=== PATIENT | female | born 1990 | race Caucasian/White ===

== ENCOUNTER 2017-03-08 13:39 | Emergency (ER) | payer OTHER ==
[~2017-03-08] VITALS: Ht 167.6 cm; Wt 78.0 kg
[~2017-03-08 13:39] MED LIST: CYCL-1 PO
[2017-03-08 13:42] VITALS: BP 123/73
[2017-03-08 14:28] LABS: ALANINE AMINOTRANSFERASE 14 U/L (12-78); ALKALINE PHOSPHATASE 72 IU/L (46-116); ANION GAP 8 (8-16); ASPARTATE AMINO TRANSFERASE 15 U/L (10-37); BILIRUBIN,TOTAL 0.3 MG/DL (0.1-1.0); BLOOD UREA NITROGEN 13 MG/DL (7-18); BUN/CREATININE RATIO 18.6 (6.6-38.0); CALCIUM 9.5 MG/DL (8.5-10.1); CHLORIDE 104 MMOL/L (99-107); GLUCOSE 113 MG/DL (70-104); POTASSIUM 3.8 MMOL/L (3.5-5.1); SODIUM 139 MMOL/L (135-145); TOTAL CARBON DIOXIDE 27.4 MMOL/L (24-32); eGFR > 90 ML/MIN
[2017-03-08 14:40] LABS: BASOPHILS % (AUTO) 0.7 % (0-1); EOSINOPHILS # (AUTO) 0.3 X10'3 (0-0.9); EOSINOPHILS % (AUTO) 5.1 % (0-6); HEMATOCRIT 36.8 % (35.0-45.0); HEMOGLOBIN 13.1 g/dl (12.0-16.0); LYMPHOCYTES # (AUTO) 1.4 X10'3 (1.1-4.8); LYMPHOCYTES % (AUTO) 25.8 % (21-51); MEAN CORPUSCULAR HGB CONC 35.5 % (33.0-36.5); MEAN CORPUSCULAR VOLUME 87.2 FL (78-98); MEAN PLATELET VOLUME 7.5 FL (7.4-10.4); MONOCYTES # (AUTO) 0.5 X10'3 (0-0.9); MONOCYTES % (AUTO) 8.9 % (2-12); NEUTROPHILS # (AUTO) 3.1 X10'3 (1.8-7.7); NEUTROPHILS % (AUTO) 59.5 % (42-75); PLATELET COUNT 211 X10'3 (140-440); RED BLOOD COUNT 4.23 X10'6 (4.20-5.60); RED CELL DISTRIBUTION WIDTH 13.8 % (11.5-14.5); WHITE BLOOD COUNT 5.3 X10'3 (4.5-11.0)
== END 2017-03-08 14:53 | disposition home or self-care (01) ==
LOC: ER 13:39
DX: T50.991A Poisoning by other drugs, medicaments and biological substances, accidental (unintentional), initial encounter (principal); R00.2 Palpitations; Y92.89 Other specified places as the place of occurrence of the external cause
CPT/HCPCS: 36415; 80053; 84484; 85025; 93005; 99285

== ENCOUNTER 2017-08-13 12:09 | Emergency (ER) | payer OTHER ==
[~2017-08-13] VITALS: Ht 170.2 cm; Wt 85.8 kg
[2017-08-13 13:14] LABS: D-DIMER < 0.19 MG/L FEU (0-0.50)
[2017-08-13 14:34] VITALS: BP 108/70
== END 2017-08-13 14:36 | disposition home or self-care (01) ==
LOC: ER 12:10
DX: R07.89 Other chest pain (principal); R06.02 Shortness of breath; R42 Dizziness and giddiness; F17.200 Nicotine dependence, unspecified, uncomplicated; Z79.899 Other long term (current) drug therapy
CPT/HCPCS: 36415; 71045; 82948; 85379; 93005; 99285

== ENCOUNTER 2019-12-04 15:42 | Emergency (ER) | payer OTHER ==
[~2019-12-04] VITALS: Ht 170.2 cm; Wt 88.2 kg
[2019-12-04 15:51] VITALS: BP 110/83
[2019-12-04] MEDS ORDERED: acetaminophen 325mg tablet PO ONE (16:15)
== END 2019-12-04 16:26 | disposition home or self-care (01) ==
LOC: ER 15:43
DX: U07.1 COVID-19 (principal); Z79.899 Other long term (current) drug therapy
CPT/HCPCS: 99282

== ENCOUNTER 2019-12-28 07:04 | Emergency (ER) | payer OTHER ==
[~2019-12-28] VITALS: Ht 170.2 cm; Wt 90.0 kg
[2019-12-28] MEDS ORDERED: acetaminophen 325mg tablet PO ONE (07:55)
[2019-12-28 09:20] VITALS: BP 109/82
== END 2019-12-28 09:19 | disposition home or self-care (01) ==
LOC: ER 07:06
DX: S06.0X0A Concussion without loss of consciousness, initial encounter (principal); S50.02XA Contusion of left elbow, initial encounter; M25.522 Pain in left elbow; R51.9 Headache, unspecified; Z79.899 Other long term (current) drug therapy; V87.7XXA Person injured in collision between other specified motor vehicles (traffic), initial encounter; Y93.89 Activity, other specified; Y92.89 Other specified places as the place of occurrence of the external cause; Y99.8 Other external cause status
CPT/HCPCS: 73080; 99283

== ENCOUNTER 2022-03-04 20:09 | Emergency (ER) | payer OTHER ==
[~2022-03-04] VITALS: Ht 170.2 cm; Wt 97.7 kg
[2022-03-04 20:22] LABS: BASOPHILS # (AUTO) 0.1 X10'3 (0-0.2); BASOPHILS % (AUTO) 0.6 % (0-1); EOSINOPHILS # (AUTO) 0.1 X10'3 (0-0.9); EOSINOPHILS % (AUTO) 0.6 % (0-6); HEMATOCRIT 42.9 % (35.0-45.0); HEMOGLOBIN 14.5 g/dl (12.0-16.0); LYMPHOCYTES # (AUTO) 3.1 X10'3 (1.1-4.8); LYMPHOCYTES % (AUTO) 26.9 % (21-51); MEAN CORPUSCULAR HEMOGLOBIN 30.1 PG (27.0-31.0); MEAN CORPUSCULAR HGB CONC 33.8 g/dL (33.0-36.5); MEAN PLATELET VOLUME 7.6 FL (7.4-10.4); MONOCYTES # (AUTO) 0.6 X10'3 (0-0.9); MONOCYTES % (AUTO) 5.6 % (2-12); NEUTROPHILS # (AUTO) 7.5 X10'3 (1.8-7.7); NEUTROPHILS % (AUTO) 66.3 % (42-75); PLATELET COUNT 294 X10'3 (140-440); RED BLOOD COUNT 4.82 X10'6 (4.20-5.60); RED CELL DISTRIBUTION WIDTH 13.6 % (11.5-14.5); WHITE BLOOD COUNT 11.4 X10'3 (4.5-11.0)
[2022-03-04 20:46] LABS: ALANINE AMINOTRANSFERASE 26 U/L (12-78); ALKALINE PHOSPHATASE 85 IU/L (46-116); ANION GAP 11 (8-16); ASPARTATE AMINO TRANSFERASE 15 U/L (10-37); BILIRUBIN,TOTAL 0.3 MG/DL (0.1-1.0); BLOOD UREA NITROGEN 13 MG/DL (7-18); BUN/CREATININE RATIO 14.4 (6.6-38.0); CALCIUM 9.1 MG/DL (8.5-10.1); CHLORIDE 104 MMOL/L (99-107); GLUCOSE 106 MG/DL (70-104); POTASSIUM 3.2 MMOL/L (3.5-5.1); SODIUM 138 MMOL/L (135-145); TOTAL CARBON DIOXIDE 23.3 MMOL/L (24-32); TOTAL PROTEIN 8.1 G/DL (6.4-8.2); eGFR 74 ML/MIN
[2022-03-04 21:38] VITALS: BP 114/75
== END 2022-03-05 01:54 | disposition left against medical advice (07) ==
LOC: ER 20:09
DX: R00.2 Palpitations (principal); Z53.21 Procedure and treatment not carried out due to patient leaving prior to being seen by health care provider
CPT/HCPCS: 36415; 80053; 83735; 83880; 84484; 85025; 93005

== ENCOUNTER 2024-11-18 15:58 | Emergency (ER) | payer MEDICAID ==
[~2024-11-18] VITALS: Ht 170.2 cm; Wt 73.1 kg
[2024-11-18 16:04] VITALS: TEMP 97.6
--- NOTE | 2024-11-18 17:00 | Physician Documentation ---
HPI ~ General Chief Complaint: Tooth Problem Stated Complaint: L SIDE JAW PAIN Time Seen by MD: 16:49 Primary Medical Doctor: ROHINI QUIÑONES History of Present Illness HPI Comment Patient is a very pleasant 34-year-old female that presents to the emergency department for evaluation of tooth pain times 2-3 weeks. Patient reports that she had a filling done a couple of months ago to that tooth that she needed for quite some time she did not go undergo any antibiotics prior to getting the filling. Patient reports that the tooth has become progressively sore to the point of now having swelling in her lower left jaw radiating into her ear in her neck. Patient reports taking Tylenol and ibuprofen with little improvement. Patient reports that she does not have a significant history of dental caries or any other dental issues. Medication Reconciliation Allergies: Coded Allergies: No Known Allergies (Unverified , 11/18/24) Scheduled Amox Tr/Potassium Clavulanate (Augmentin 875-125 Tablet), 1 TAB PO Q12H Scheduled PRN Cyclobenzaprine* (Cyclobenzaprine*), 1 TABLET PO Q8H PRN for muscle spasms Past Medical History Past Medical History: No Pertinent History Past Surgical History: no surgical history Alcohol Use: None Drug Use: none Lives In: Home Occupation: employed Review of Systems ROS As stated above in the HPI, otherwise all systems are reviewed and negative. Physical Exam Vital Signs: Temperature: 97.6, Source: Temporal, Heart Rate: 86, Respiratory Rate: 18, BP: 115/85, Pulse Oximetry: 99, Weight: 73.100 Physical Exam VITALS: Reviewed and as above. GENERAL: Alert, no apparent distress. HEENT: Normocephalic, atraumatic, PERRL, EOMI, dry mucosa, no erythema, swelling to the left lower gumline approximately at the 2nd molar, lymphadenopathy noted to the submandibular lymph node on the left side. RESPIRATORY: Lungs clear, normal breath sounds, no respiratory distress. CHEST: No accessory muscle use, no retractions CV: Regular rate, rhythm, no edema, no murmur, No: JVD GI: Soft, non-tender, bowels sounds present, no rebound, guarding, or rigidity BACK: No CVA tenderness, or swelling MUSCULOSKELETAL No deformities, no edema SKIN: Warm and dry, no rash NEURO: Oriented x4, No motor or sensory deficit PSYCH: Normal mood and affect, no agitation Progress Results/Orders Results/Orders Completed Orders - RHODA BLANCAS Diane [employer]EL[employer] Ketorolac Trometh 30mg/Ml Vial (Toradol (11/18/24 17:00) Hydrocodone/Apap 5/325mg Tab (Chula 5/32 (11/18/24 17:00) Amox Tr/Potassium Clavulanate (Augmentin (11/18/24 17:00) Ondansetron Disint. Tablet (Zofran Odt T (11/18/24 17:05) Medications Received in ER Medications (Trade) Dose Ordered Sig/Anirudh Route PRN Reason Start Time Stop Time Status Last Admin Dose Admin (Toradol inj. 30mg/ml) 30 mg ONCE ONCE IM 11/18/24 17:00 11/18/24 17:03 DC 11/18/24 17:24 30 MG (Chula 5/325mg tablet) 1 tab ONCE ONCE PO 11/18/24 17:00 11/18/24 17:03 DC 11/18/24 17:25 1 TAB (Augmentin 875-125mg tablet) 1 tab ONCE ONCE PO 11/18/24 17:00 11/18/24 17:03 DC 11/18/24 17:24 1 TAB (Zofran ODT tablet) 4 mg ONCE ONCE PO 11/18/24 17:05 11/18/24 17:06 DC 11/18/24 17:24 4 MG Vital Signs 11/18/24 11/18/24 11/18/24 16:04 17:24 17:25 Temp 97.6 Pulse 86 Resp 18 16 16 B/P (MAP) 115/85 Pulse Ox 99 Medical Decision Making Additional info obtained from: other Findings Patient presents for dental pain due to suspected dental harshal. Patient not immunosuppressed, afebrile and well appearing with patent airway, have low suspicfion for deep space infection or any concern for airway compromise. Based on history, physical, and work up. No evidence of tooth fracture, avulsion, or bleeding socket. Patient does present with a relatively new filling which is where the pain is originating from. There he is concern that that filling trapped some bacteria that has now festered and cause an infection. No evidence of RPA, FENCE ERECTOR, Ludwigs angina, periapical abscess. Patient provided Toradol and Chula for pain management. Instructed patient to continue to treat pain with ibuprofen/acetaminophen until they see a dentist. Patient prescribed antib iotics and given her 1st dose here in the emergency department. Patient discharged home and will follow up with dentist. Discussed return precautions for odontogenic infections and other dental pain emergencies. Patient will follow up with her primary care provider. Patient will return to the emergency department with any worsening or recurrent symptoms or any additional concerning symptoms that we discussed here today significantly increased pain fever chills nausea vomiting swelling that impedes airway or difficulty swallowing. Differential Dx:Considerations: Include: Alveolar fracture, Alveolar osteitis, ANUG, Facial Cellulitis, Periapical abscess, Peridontal abscess, Post-extraction bleeding, Pulpitis, Tooth avulsion, Tooth eruption, Tooth Fracture, Trigeminal neuralgia, Tooth subluxation, Other Departure Disposition: 01 HOME / SELF CARE / HOMELESS Impression: Primary Impression: Toothache Additional Impression: Dental abscess Condition: Stable Discharge Instructions: Dental Pain, Dental Abscess Additional Instructions: Patient presents for dental pain due to suspected dental harshal. Patient not immunosuppressed, afebrile and well appearing with patent airway, have low suspicfion for deep space infection or any concern for airway compromise. Based on history, physical, and work up. No evidence of tooth fracture, avulsion, or bleeding socket. Patient does present with a relatively new filling which is where the pain is originating from. There he is concern that that filling trapped some bacteria that has now festered and cause an infection. No evidence of RPA, FENCE ERECTOR, Ludwigs angina, periapical abscess. Patient provided Toradol and Chula for pain management. Instructed patient to continue to treat pain with ibuprofen/acetaminophen until they see a dentist. Patient prescribed antibiotics and given her 1st dose here in the emergency department. Patient discharged home and will follow up with dentist. Discussed return precautions for odontogenic infections and other dental pain emergencies. Patient will follow up with her primary care provider. Patient will return to the emergency department with any worsening or recurrent symptoms or any additional concerning symptoms that we discussed here today significantly increased pain fever chills nausea vomiting swelling that impedes airway or difficulty swallowing. Referrals: NO PRIMARY CARE PROVIDER (PCP) Prescriptions Hydrocodone Bit/Acetaminophen 5/325 MG (Chula 5/325 MG) 5 Mg/325 Mg Tablet 1 TAB PO Q6H PRN for pain for 3 Days, #12 TAB Prov: RHODA BLANCAS 11/18/24 Amox Tr/Potassium Clavulanate (Augmentin 875-125 Tablet) 1 Each Tablet 1 TAB PO Q12H for 10 Days, #20 TAB Prov: RHODA BLANCAS 11/18/24 Education Educated: Patient Educated regarding: diagnosis, treatment, need for follow up Signature Scribe Signature: A Attestation: Scribed for Rhoda Blancas by CHANDRIKA Aldana . 11/18/24 17:32 RHODA BLANCAS Nov 18, 2024 17:00
[2024-11-18] MEDS: ondansetron 4mg rapidly disintigrating tab PO ONE (17:24)
[2024-11-18] MEDS: ketorolac trometh 30MG/ML vial 30 MG/ML VIAL IM ONE (17:24)
[2024-11-18] MEDS: amox tr/potassium clavulanate 875/125mg TAB PO ONE (17:24)
[2024-11-18] MEDS: HYDROcodone/acetaminophen 5mg/325mg tablet PO ONE (17:25)
[2024-11-18] MEDS ORDERED: AMOX-117 PO (17:30)
[2024-11-18] MEDS ORDERED: HYDR-3965 PO (17:31)
[2024-11-18 17:42] VITALS: BP 132/91; PULSE 78; RESP 16; O2SAT 98
== END 2024-11-18 17:48 | disposition home or self-care (01) ==
LOC: ER 15:59
DX: K04.7 Periapical abscess without sinus (principal)
CPT/HCPCS: 96372; 99284; J1885